=== PATIENT | female | born 1975 | race Caucasian/White ===

== ENCOUNTER 2022-10-01 00:28 | Emergency (ER) | payer MEDICAID ==
[~2022-10-01] VITALS: Ht 160 cm; Wt 64.0 kg
[2022-10-01 00:38] VITALS: BP 138/61
[2022-10-01] MEDS ORDERED: LORAZEPAM 0.5MG TABLET PO ONE (00:45)
[2022-10-01 01:19] LABS: BASOPHILS % 0.8 % (0.0-2.0); EOSINOPHILS % 2.3 % (0.0-5.0); HEMATOCRIT. 40.5 % (36.0-48.0); HEMOGLOBIN. 14.2 g/dL (12.0-16.0); LYMPHOCYTES % 35.2 % (20.0-50.0); MEAN CORPUSCULAR HEMOGLOBIN 31.9 pg (28.0-32.0); MEAN CORPUSCULAR VOLUME 90.8 fL (81.0-99.0); MEAN PLATELET VOLUME 7.3 fl (7.4-10.4); MONOCYTES % 8.4 % (2.0-8.0); NEUTROPHILS % 53.3 % (40.0-76.0); PLATELET 376 x1000/uL (130-400); RED BLOOD CELL COUNT 4.46 mill/uL (4.2-5.4)
[2022-10-01 01:28] LABS: CHLORIDE 108 mEq/L (98-107)
[2022-10-01 01:37] LABS: ETHANOL BLOOD < 10 mg/dL
[2022-10-01 02:23] LABS: HCG SCREEN NEGATIVE
[2022-10-01] MEDS ORDERED: LORAZEPAM 0.5MG TABLET PO NR (04:00)
[2022-10-01] MEDS ORDERED: HYDR-3782 MT (04:02)
== END 2022-10-01 04:23 | disposition home or self-care (01) ==
LOC: ER 00:40
DX: F41.0 Panic disorder [episodic paroxysmal anxiety] (principal); Z00.00 Encounter for general adult medical examination without abnormal findings; F41.9 Anxiety disorder, unspecified
CPT/HCPCS: 36415; 80053; 80320; 84703; 85025; 93005; 99284; G0480